=== PATIENT | female | born 1990 | race Caucasian/White ===

== ENCOUNTER 2018-03-04 13:31 | Emergency (ER) | payer OTHER ==
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
[2018-03-04 13:48] VITALS: BP 127/84
== END 2018-03-04 13:48 | disposition home or self-care (01) ==
LOC: ER 13:46
DX: S16.1XXA Strain of muscle, fascia and tendon at neck level, initial encounter (principal); V49.60XA Unspecified car occupant injured in collision with unspecified motor vehicles in traffic accident, initial encounter
CPT/HCPCS: 99281